=== PATIENT | male | born 1980 | race Caucasian/White ===

== ENCOUNTER 2018-03-09 17:41 | Emergency (ER) | payer OTHER ==
[~2018-03-09] VITALS: Ht 160 cm; Wt 101.0 kg
[2018-03-09] MEDS ORDERED: LEVOTHYROXINE50 MCG PO (17:50)
[2018-03-09] MEDS ORDERED: LISINOPRIL20 MG PO (17:51)
[2018-03-09] MEDS ORDERED: SIMVASTATIN10 MG PO (17:51)
[2018-03-09] MEDS ORDERED: AUGMENTIN 875-1 EACH PO (18:11)
== END 2018-03-09 18:40 | disposition home or self-care (01) ==
LOC: ED 17:41
DX: J02.9 Acute pharyngitis, unspecified (principal); I10 Essential (primary) hypertension; E03.9 Hypothyroidism, unspecified; E78.00 Pure hypercholesterolemia, unspecified; F17.200 Nicotine dependence, unspecified, uncomplicated; Z79.899 Other long term (current) drug therapy
CPT/HCPCS: 96372; 99283; J0696; J1100

== ENCOUNTER 2019-08-09 09:05 | Emergency (ER) | payer OTHER ==
[~2019-08-09] VITALS: Ht 160 cm; Wt 100.7 kg
[~2019-08-09 09:05] MED LIST: AUGMENTIN 875-1 EACH PO; LEVOTHYROXINE50 MCG PO; LISINOPRIL20 MG PO; SIMVASTATIN10 MG PO
--- OUTSIDE RECORDS SUMMARY | 2019-08-09 09:08 | XMS ---
PreManage Notification: DARYL RUBALCAVA Security Manager Java Events No recent Security Events currently on file CRITERIA MET - PDM CARE PROVIDERS MARIANNA GOLDMAN Primary Care Current PHONE: [phone] Petty ORO 01/27/2012-Current ROSANA PHONE: [phone] JODY BARRAGAN 06/27/2013-Current PHONE: [phone] Charles has no Care Guidelines for this patient. EVera VISIT COUNT (12 MO.) 1 ANTONIA Julien TOTAL 1 NOTE: Visits indicate total known visits. ED/UCC VISIT TRACKING (12 MO.) 08/09/2019 09:06 ANTONIA Nuno OR TYPE: Emergency COMPLAINT: - SKIN PROBLEM/ GROIN AREA INPATIENT VISIT TRACKING (12 MO.) No inpatient visits to display in this time frame [email or web address]
[2019-08-09] MEDS ORDERED: KEFLEX500 MG PO (09:46)
== END 2019-08-09 10:03 | disposition home or self-care (01) ==
LOC: ED 09:05
DX: L03.314 Cellulitis of groin (principal); N48.22 Cellulitis of corpus cavernosum and penis; I10 Essential (primary) hypertension; E03.9 Hypothyroidism, unspecified; E78.00 Pure hypercholesterolemia, unspecified; F17.200 Nicotine dependence, unspecified, uncomplicated; Z71.6 Tobacco abuse counseling; Z79.899 Other long term (current) drug therapy
CPT/HCPCS: 99283-25; 99406; A9270

== ENCOUNTER 2022-02-09 12:02 | Emergency (ER) | payer OTHER ==
[~2022-02-09] VITALS: Ht 160 cm; Wt 95.9 kg
[~2022-02-09 12:02] MED LIST changes: +KEFLEX500 MG PO
[2022-02-09] MEDS ORDERED: CITALOPRAM HBR20 MG PO (12:40)
[2022-02-09] MEDS ORDERED: VITAMIN D21250 MCG (12:40)
[2022-02-09] MEDS ORDERED: OLANZAPINE5 MG PO (12:40)
[2022-02-09] MEDS ORDERED: DIVALPROEX SOD500 MG PO (12:41)
[2022-02-09] MEDS ORDERED: OMEPRAZOLE20 MG PO (14:25)
[2022-02-09] MEDS ORDERED: ONDANSETRON ODT8 MG PO (14:25)
== END 2022-02-09 14:35 | disposition home or self-care (01) ==
LOC: ED 12:02
DX: R10.9 Unspecified abdominal pain (principal); E03.9 Hypothyroidism, unspecified; I10 Essential (primary) hypertension; E78.00 Pure hypercholesterolemia, unspecified; F17.200 Nicotine dependence, unspecified, uncomplicated; Z79.899 Other long term (current) drug therapy
CPT/HCPCS: 36415; 76705; 80053; 81001; 83690; 85025; 99284-25; J7030

== ENCOUNTER 2025-07-22 14:14 | Emergency (ER) | payer OTHER ==
[~2025-07-22] VITALS: Ht 160 cm; Wt 78.0 kg
[~2025-07-22 14:14] MED LIST changes: +CITALOPRAM HBR20 MG PO; +DIVALPROEX SOD500 MG PO; +OLANZAPINE5 MG PO; +OMEPRAZOLE20 MG PO; +ONDANSETRON ODT8 MG PO; +VITAMIN D21250 MCG
[2025-07-22 14:48] LABS: BLOOD/HGB, URINE NEGATIVE (Negative); KETONE, URINE NEGATIVE (Negative); LEUK ESTERASE, URINE NEGATIVE (negative); NITRITE, URINE NEGATIVE (negative)
[2025-07-22 14:58] LABS: BASOPHILS 1.0 % (0.2-1.2); EOSINOPHILS 0.7 % (0.8-7.0); LYMPHOCYTES 27.1 % (21.8-53.1); MCH 33.2 PG (25.7-32.2); MCHC 35.4 g/dL (32.3-36.5); MCV 93.6 fL (79.0-92.2); MONOCYTES 8.1 % (5.3-12.2); NEUTROPHILS 62.9 % (34.0-67.9); RBC 4.04 M/uL (4.63-6.08)
[2025-07-22 15:09] LABS: AMPHETAMINES, URINE POSITIVE (NEGATIVE); BARBITURATES, URINE NEGATIVE (NEGATIVE); BENZODIAZEPINE, URINE NEGATIVE (NEGATIVE); CANNABINOID, URINE POSITIVE (NEGATIVE); COCAINE, URINE NEGATIVE (NEGATIVE); ECSTASY, URINE POSITIVE (NEGATIVE); FENTANYL, URINE NEGATIVE (NEGATIVE); METHADONE, URINE NEGATIVE (NEGATIVE); OPIATES, URINE NEGATIVE (NEGATIVE); OXYCODONE, URINE NEGATIVE (NEGATIVE); PHENCYCLIDINE, URINE NEGATIVE (NEGATIVE)
[2025-07-22 15:31] LABS: ALCOHOL, MEDICAL <3 ng/dL (<3); ALT (SGPT) 25 U/L (14-59); AST (SGOT) 24 U/L (15-37); GLOMERULAR FILTRATION RATE,EST 112 mL/min (>60); PROTEIN, TOTAL 7.1 g/dL (6.4-8.2); TSH, 3RD GENERATION 1.759 uIU/mL (0.358-3.740); UREA NITROGEN 10 mg/dL (7-18)
[2025-07-22] MEDS ORDERED: CITALOPRAM HBR10 MG PO (16:17)
[2025-07-22] MEDS ORDERED: DEPAKOTE125 MG PO (16:17)
[2025-07-22] MEDS ORDERED: OLANZAPINE2.5 MG PO (16:17)
[2025-07-22 16:23] VITALS: BP 162/86
== END 2025-07-22 16:20 | disposition home or self-care (01) ==
LOC: ED 14:14
PROVIDERS: Emergency Medicine
DX: F03.90 Unspecified dementia, unspecified severity, without behavioral disturbance, psychotic disturbance, mood disturbance, and anxiety (principal); E03.9 Hypothyroidism, unspecified; E78.00 Pure hypercholesterolemia, unspecified; I10 Essential (primary) hypertension; F17.200 Nicotine dependence, unspecified, uncomplicated; Z79.899 Other long term (current) drug therapy
CPT/HCPCS: 36415; 80053; 80307; 81003; 84443; 85025; 99285; G0480